=== PATIENT | female | born 1990 | race Caucasian/White ===

== ENCOUNTER 2021-03-19 07:38 | Inpatient (IN) ==
[2021-03-19] MEDS ORDERED: OXYTOCIN 30 UNITS/500 ML BAG IV PRN ×3 (08:25→21:46)
[2021-03-19 09:18] LABS: Hematocrit (blood only) 37.3 % (37-47); Hemoglobin 12.4 g/dL (12.0-16.0); Mean Corpuscular Hemoglobin 30.9 pg (25-34); Mean Corpuscular Hgb Conc 33.2 g/dL (32-36); Mean Platelet Volume 10.3 fL (7.4-10.4); Platelet Count 178 K/uL (130-400); RDW Coefficient of Variation 13.5 % (11.5-14.5); RDW Standard Deviation 46.4 fL (36.4-46.3); Red Blood Count 4.01 M/uL (4.2-5.4); White Blood Count 7.39 K/uL (4.8-10.8)
[2021-03-19] MEDS: LACTATED RINGER'S 1,000 ML IV PRN ×3 (09:37→15:37)
--- NOTE | 2021-03-19 10:38 | History & Physical Report ---
Date of Service March 19, 2021 Assessment & Plan (1) Previous delivery affecting , antepartum: Plan: cervical change accomplished with cervical balloon. will begin pitocin augmentation of labor Type and Screen done because of prior section AROM when able to do so. Cervix is too posterior to perform now. Epidural when requested. Anticipate vaginal Admission and Anticipated Discharge Date Admission Date: March 19, 2021 History of Present Illness Primary Care Provider: Amada Moreno PA-C Patient is a 30 yo white female who presents at 39 weeks for IOL. She had a primary C/S with her last because of suspected macrosomia at 41 weeks without a trial of labor. Patient is requesting trial of as the women in her family all have large babies and have had successful vaginal births. She would at least like the opportunity to try. EFW at 36 weeks was 89%tile - EFW 7lbs 4 ozs. Prior infant weighed 10 lbs 12 ozs. She received a cervical balloon last night. She developed some contractions and then balloon was expelled. Some contractions afterward but she was able to get some sleep. GBS negative. Rest of has been uncomplicated. Allergies Allergy/AdvReac Type Severity Reaction Status Date / Time Iodinated Contrast Media Allergy facial Verified 03/19/21 08:14 swelling Home Medications Medication Instructions Recorded Confirmed Type prenat.vits,jazlyn,gup-mjrl-lexbz 1 tab PO DAILY 08/04/20 03/19/21 History Patient History Medical History Large for gestational age fetus Varicella vaccination Surgical History S/P section S/P laparoscopy Status post hip surgery Family History Grandmother (Maternal) Breast cancer Aunt Breast cancer Denies family history of Ovarian cancer Colorectal cancer Social History (Updated 08/04/20 @ 09:06 by Arianna Fragoso) Smoking Status: Never smoker Hx Alcohol Use: No Hx Substance Use: No Preferred Language: Italian Communication Ability: Effective Bell Staff Required: No Beliefs That Will Affect Care: None marital status: marital status details: Chris Pennie (31) [phone] Current Living Situation: Family Current Living Situation Comment: and son (21mo) current occupational status: employed 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 Feels Safe at Home: Yes Safety Concerns: Feels Safe At This Time Assistive Devices: None Review of Systems All systems reviewed & are unremarkable except as noted in HPI & below Physical Exam Constitutional: WD/WN, vitals as above Respiratory: normal respiratory effort, lungs clear to auscultation Cardiovascular: RRR, no murmur, no edema Psychiatric: A+Ox3, euthymic affect Genitourinary: OB Exam Abdomen: + vertex, + estimated weight (8-9 pounds) and + irregular contractions Manual OB Exam: + cervical dilation 3 cm, + cervical effacement 80% and + station -2 OB Exam Monitor Tracing: + external FHT monitor used, + external uterine monitor used, + category I and + normal FHT variability Results & Data ([facility]) Vital Signs (Past 12 Hours) Vital Signs Temp Pulse Resp BP 03/19/21 09:39 86 109/70 03/19/21 07:53 97.9 F 20 03/19/21 07:44 96 H 114/76 Code Status & VTE Plan VTE Prophylaxis Plan VTE Prophylaxis will be ordered: No Coding Level of Care Code None Diagnoses Previous delivery affecting , antepartum O34.219
[2021-03-19] MEDS ORDERED: fentaNYL citrate 100 MCG/2 ML VIAL ONE (14:11)
[2021-03-19] MEDS ORDERED: SODIUM CHLORIDE 0.9% INJ 10 ML VIAL ONE ×2 (14:11→15:27)
[2021-03-19] MEDS ORDERED: BUPIVACAINE 0.25% 30 ML VIAL ONE (14:11)
[2021-03-19] MEDS ORDERED: ePHEDrine sulfate 50 MG/ML AMP ONE (14:11)
[2021-03-19] MEDS ORDERED: fentaNYL 2MCG/ML ROPIVACAINE 1.25MG/ML 100 ML BAG EPI ONE (14:12)
[2021-03-19] MEDS ORDERED: NALOXONE HCL 1 MG in SODIUM CHLORIDE 0.9% 1000ML 1,000 ML IV PRN (14:33)
[2021-03-19] MEDS ORDERED: NALOXONE HCL 0.4 MG/1 ML VIAL/CARP IV PRN (14:33)
[2021-03-19] MEDS ORDERED: ePHEDrine sulfate 50 MG/ML AMP IV PRN (14:33)
[2021-03-19] MEDS ORDERED: fentaNYL 2MCG/ML ROPIVACAINE 1.25MG/ML 100 ML BAG EPI PRN (14:33)
[2021-03-19] MEDS ORDERED: ONDANSETRON INJ 2 MG/ML 2 ML VIAL IV PRN (14:33)
[2021-03-19] MEDS ORDERED: diphenhydrAMINE 50 MG/ML VIAL IV PRN (14:33)
[2021-03-19] MEDS ORDERED: NALBUPHINE HCL INJ 10 MG/ML AMP IV PRN (14:33)
--- NOTE | 2021-03-19 14:38 | Anesthesiology Consultation ---
Date of Service March 19, 2021 Assessment & Plan (1) Encounter for pre-operative examination: Chart Review Chart Review: Patient NOT seen in Pre Admission Testing and Acceptable Risk for Labor Epidural Consults Requested none History Height/Weight Height: 5 ft 5 in Weight: 76.204 kg Allergies Allergy/AdvReac Type Severity Reaction Status Date / Time Iodinated Contrast Media Allergy facial Verified 03/19/21 08:14 swelling Medications Home Medications Medication Instructions Recorded Confirmed Last Taken prenat.vits,jazlyn,fjg-yoct-acdmj 1 tab PO DAILY 08/04/20 03/19/21 03/18/21 12:00 Active Medications Generic Name Dose Route Start Last Admin Trade Name Freq PRN Reason Stop Dose Admin Oxytocin 30 units in 500 mls @ 11 mls/hr 03/19/21 08:25 03/19/21 12:30 Pitocin IV 03/21/21 08:24 0.66 units/hr .Q24H PRN 11 mls/hr Labor Induction/Augmentation Titration Protocol 0.66 UNITS/HR Lactated Ringer's 1,000 mls @ 125 mls/hr 03/19/21 08:25 03/19/21 14:30 Lr IV 03/21/21 08:24 999 mls/hr .Q8H PRN Administration L&D Protocol Protocol Past Medical History Medical History (Updated 03/19/21 @ 14:36 by Darly Moss MD) Encounter for pre-operative examination Large for gestational age fetus Varicella vaccination Exercise / Class Metabolic Activity II 4-5 Yardwork/Stairs/Walk up hill Past Family History Family History Grandmother (Maternal) Breast cancer Aunt Breast cancer Denies family history of Ovarian cancer Colorectal cancer Past Surgical History Surgical History S/P section S/P laparoscopy Status post hip surgery Past Anesthesia History No Hx of Anesthesia Complications and No Family Hx of Anesthesia Complications History of PONV No Hx of PONV and No Hx of Motion Sickness Social History Smoking Status: Never smoker Hx Alcohol Use: No Hx Substance Use: No Physical Exam Vital Signs Last Vital Signs Temp 37.0 C 03/19/21 12:46 Pulse 95 H 03/19/21 14:33 Resp 20 03/19/21 10:56 BP 122/76 03/19/21 13:20 Pulse Ox 91 03/19/21 14:33 Testing Laboratory Results 03/19/21 08:54 Blood Type O Positive 03/19/21 08:54 Antibody Screen NEGATIVE 03/19/21 08:54
[2021-03-19] MEDS ORDERED: DIPHTHERIA/TETANUS/PERTUSSIS 0.5 ML SYR/VIAL IM ONE (21:46)
[2021-03-19] MEDS ORDERED: ACETAMINOPHEN 325 MG TAB PO PRN (21:46)
[2021-03-19] MEDS ORDERED: HYDROCORTISONE ACETATE 25 MG SUPP PR PRN (21:46)
[2021-03-19] MEDS ORDERED: BENZOCAINE 20% AER SPR 82.5 GM CAN EXT PRN (21:46)
[2021-03-19] MEDS ORDERED: oxyCODONE/ACETAMINOPHEN 5mg/325mg TAB PO PRN (21:46)
[2021-03-19] MEDS ORDERED: SUPERCREAM 0.870% 15 GM JAR EXT PRN (21:46)
[2021-03-19] MEDS ORDERED: bisacodyL 10 MG SUPP PR PRN (21:46)
--- NOTE | 2021-03-19 21:57 | Anesthesia Procedure Note ---
Date of Service March 19, 2021 Anesthesia Post Epidural Note Vital Signs Vital Signs: Temp Pulse Resp BP Pulse Ox 37.2 C 100 H 20 107/57 L 100 03/19/21 17:52 03/19/21 21:50 03/19/21 18:05 03/19/21 21:50 03/19/21 21:29 Notes Mental Status: alert / awake / arousable and participated in evaluation Patient Amnestic to Procedure: No Nausea / Vomiting: adequately controlled Pain: adequately controlled Airway Patency, RR, SpO2: stable & adequate BP & HR: stable & adequate Hydration State: stable & adequate Neuraxial Anesthesia: was administered and sensory block is resolving Anesthetic Complications: no major complications apparent and Pt Satisfied with anesthetic care Epidural: Removed without complications and With tip intact
--- NOTE | 2021-03-19 22:27 | Delivery Summary ---
Vaginal Delivery Summary Date of Service March 19, 2021 Vaginal Delivery Summary and 2nd Degree LAC Patient is a 30-year-old 2 para 1-0-0-1 white female who presents at 39 weeks for induction of labor. Her prior delivery was by section because of suspected macrosomia. This was performed at 41 weeks gestation. She did not have a trial of labor with her first and is requesting to with this time. A cervical balloon was placed successfully the night prior to the induction. Pitocin augmentation was begun. Membranes were ruptured for clear fluid. She received effective epidural analgesia. She progressed to full dilation and +1 station. She pushed effectively over intact perineum for delivery of a viable male . The posterior arm delivered shortly after the head and was gently delivered to the shoulder. The rest of the infant delivered easily and without maternal effort at this time. The infant was vigorous and crying upon delivery. He was placed on the mother's abdomen for further attention and drying. The cord was clamped and cut after 1 minute. The placenta was expressed intact with a three-vessel cord. bleeding was controlled with dilute Pitocin and fundal massage. A second-degree perineal laceration was repaired with 3-0 chromic in the usual fashion. Bilateral superficial labial tears were not bleeding and therefore not repaired. Estimated blood loss was 300 cc. Mother and were doing well after delivery. [facility] [place] Delivery Type Details: and 2nd Degree LAC
[2021-03-19] MEDS: IBUPROFEN 600 MG TAB PO PRN (23:57)
--- NOTE | 2021-03-20 05:38 | Obstetrical Progress Note ---
Date of Service <Ria De MD - Last Filed: 03/20/21 07:41> March 20, 2021 Assessment & Plan <Ria De MD - Last Filed: 03/20/21 07:41> (1) Vaginal after delivery: 30 yo now PPD1 from at 39wk2d with 2nd degree perineal laceration -Continue routine care, anticipate d/c tomorrow AM -Vitals reviewed- HDS, afebrile -Blood type O+, GBS-, Rubella immune -Encourage ambulation -Pain control with ibuprofen, acetaminophen PRN -Encourage -F/u in 6 weeks with OB <Vivian Brown MD, FACOG - Last Filed: 03/20/21 08:42> (1) Vaginal after delivery: Subjective <Ria De MD - Last Filed: 03/20/21 07:41> Ambulation: ambulating normally Voiding: no voiding problems Passing Gas:: Yes Diet Tolerance:: regular diet Lochia:: Moderate Feeding Type:: breast feeding Current Pain Level(1-10): 0 Pt doing well overall, no acute complaints or distress. Pain well controlled with medication. Review of Systems Denies fever/chills. Denies dyspnea, cough. Denies chest pain. Denies breast pain or discharge. Denies dysuria. Denies headache. Denies back pain. Physical Exam <Ria De MD - Last Filed: 03/20/21 07:41> General: Alert, oriented, no acute distress Cardiac: Regular rate and rhythm, normal S1, S2. No murmurs noted. Respiratory: Clear to auscultation b/l with good air flow entry, symmetric chest rise and fall. No wheezes or crackles. No increased work of breathing or accessory muscle use. Abdomen: Soft, nontender, nondistended. Fundus firm and palpable at 1 cm below umbilicus. No guarding or rebound. Skin: No rashes or lesions Extremities: Warm, dry and well-perfused with capillary refill <2s b/l. No lower extremity edema, erythema or swelling. Negative Irene's sign b/l. Results & Data ([facility]) <Ria De MD - Last Filed: 03/20/21 07:41> Vital Signs (Past 12 Hours) Vital Signs Temp Pulse Pulse Resp BP BP Pulse Ox 03/20/21 04:00 36.9 C 87 18 96/63 L 03/20/21 01:00 37.1 C 108 H 18 94/61 L 03/19/21 23:25 18 03/19/21 23:20 90 112/57 L 03/19/21 23:05 82 113/60 03/19/21 22:55 18 03/19/21 22:50 100 H 110/62 03/19/21 22:35 96 H 115/65 03/19/21 22:25 18 03/19/21 22:20 90 117/61 03/19/21 22:10 18 03/19/21 22:05 85 111/59 L 03/19/21 21:55 18 03/19/21 21:50 100 H 107/57 L 03/19/21 21:40 18 03/19/21 21:35 95 H 111/59 L 03/19/21 21:29 104 H 100 03/19/21 21:25 37 C 18 03/19/21 21:24 91 H 100 03/19/21 21:20 94 H 111/65 03/19/21 21:19 95 H 100 03/19/21 21:14 100 H 99 03/19/21 21:09 110 H 100 03/19/21 21:04 142 H 99 03/19/21 20:59 138 H 100 03/19/21 20:54 135 H 100 03/19/21 20:49 101 H 98 03/19/21 20:47 95 H 90 03/19/21 20:44 96 H 100 03/19/21 20:39 116 H 99 03/19/21 20:37 107 H 112/65 03/19/21 20:34 123 H 99 03/19/21 20:29 123 H 100 03/19/21 20:27 115 H 91 03/19/21 20:24 129 H 100 03/19/21 20:22 78 109/67 03/19/21 20:21 82 89 L 03/19/21 20:19 95 H 97 03/19/21 20:14 95 H 100 03/19/21 20:09 93 H 100 03/19/21 20:05 103 H 106/69 03/19/21 20:04 91 H 100 03/19/21 19:59 83 100 03/19/21 19:54 89 100 03/19/21 19:51 100 H 106/72 03/19/21 19:49 110 H 100 03/19/21 19:44 108 H 100 03/19/21 19:39 118 H 100 03/19/21 19:36 78 110/69 03/19/21 19:34 108 H 100 03/19/21 19:29 107 H 100 03/19/21 19:24 89 84 L 03/19/21 19:20 97 H 113/69 03/19/21 19:19 94 H 99 03/19/21 19:15 98 H 93 03/19/21 19:14 102 H 96 03/19/21 19:09 96 H 100 03/19/21 19:05 83 98/51 L 03/19/21 19:04 78 100 03/19/21 18:59 83 100 03/19/21 18:54 77 100 03/19/21 18:51 95 H 108/59 L 03/19/21 18:49 83 100 03/19/21 18:44 77 100 03/19/21 18:39 76 100 03/19/21 18:36 78 104/53 L 03/19/21 18:34 85 100 03/19/21 18:29 88 100 03/19/21 18:24 90 100 03/19/21 18:22 79 101/52 L 03/19/21 18:19 91 H 100 03/19/21 18:14 88 100 03/19/21 18:09 82 100 03/19/21 18:05 84 20 93/55 L 03/19/21 18:04 83 100 03/19/21 17:59 75 100 03/19/21 17:54 99 H 100 03/19/21 17:52 37.2 C 78 20 91/50 L 03/19/21 17:49 100 H 100 03/19/21 17:44 86 100 03/19/21 17:39 111 H 100 03/19/21 17:36 129 H 114/55 L <Vivian Brown MD, FACOG - Last Filed: 03/20/21 08:42> Co-Signing Physician Notes Resident Physician Supervision Note: I interviewed and examined the patient. Discussed with Dr. De and agree with findings and plan as documented in the note. Any exceptions or clarifications are listed here: [None] Documented By: Vivian Brown MD, FACOG Resident Activity Tracking <Ria De MD - Last Filed: 03/20/21 07:41> Resident Involvement: Resident Care Provided Care Provided: OB Delivery
[2021-03-20 07:13] LABS: Hematocrit (blood only) 36.8 % (37-47); Hemoglobin 12.2 g/dL (12.0-16.0); Mean Corpuscular Hgb Conc 33.2 g/dL (32-36); Mean Corpuscular Volume 93.6 fL (80-100); Mean Platelet Volume 10.1 fL (7.4-10.4); Platelet Count 184 K/uL (130-400); RDW Coefficient of Variation 13.7 % (11.5-14.5); RDW Standard Deviation 46.8 fL (36.4-46.3); Red Blood Count 3.93 M/uL (4.2-5.4); White Blood Count 14.35 K/uL (4.8-10.8)
[2021-03-20] MEDS: DOCUSATE SODIUM 100 MG CAP PO SCH ×2 (07:47→20:34)
[2021-03-20] MEDS: IBUPROFEN 600 MG TAB PO PRN ×3 (07:47→17:51)
[2021-03-20] MEDS: PRENATAL VITAMIN 1 TAB PO SCH (07:47)
[2021-03-20] MEDS ORDERED: bisacodyL 5 MG TABEC PO SCH (20:00)
[2021-03-21] MEDS: IBUPROFEN 600 MG TAB PO PRN ×2 (03:33→08:12)
--- NOTE | 2021-03-21 06:57 | Obstetrical Progress Note ---
Date of Service <Ria De MD - Last Filed: 03/21/21 07:23> March 21, 2021 Assessment & Plan <Ria De MD - Last Filed: 03/21/21 07:23> (1) Vaginal after delivery: 30 yo now PPD2 from at 39wk2d with 2nd degree perineal laceration -D/c today, care instructions given -Vitals reviewed- HDS, afebrile -Blood type O+, GBS-, Rubella immune -Pain control with ibuprofen, acetaminophen PRN -Encourage -F/u in 6 weeks with OB <Arnie Stiles MD, FACOG - Last Filed: 03/21/21 07:47> (1) Vaginal after delivery: Subjective <Ria De MD - Last Filed: 03/21/21 07:23> Ambulation: ambulating normally Voiding: no voiding problems Passing Gas:: Yes Diet Tolerance:: regular diet Lochia:: Small Feeding Type:: breast feeding Current Pain Level(1-10): 0 Pt doing well overall, no acute complaints or distress. Pain well controlled with medication. Has passed BM Review of Systems Denies fever/chills. Denies dyspnea, cough. Denies chest pain. Denies breast pain or discharge. Denies dysuria. Denies headache. Denies back pain. Physical Exam <Ria De MD - Last Filed: 03/21/21 07:23> General: Alert, oriented, no acute distress Cardiac: Regular rate and rhythm, normal S1, S2. No murmurs noted. Respiratory: Clear to auscultation b/l with good air flow entry, symmetric chest rise and fall. No wheezes or crackles. No increased work of breathing or accessory muscle use. Abdomen: Soft, nontender, nondistended. Fundus firm and palpable at 2 cm below umbilicus. No guarding or rebound. Skin: No rashes or lesions Extremities: Warm, dry and well-perfused with capillary refill <2s b/l. No lower extremity edema, erythema or swelling. Negative Irene's sign b/l. Results & Data ([facility]) <Ria De MD - Last Filed: 03/21/21 07:23> Vital Signs (Past 12 Hours) Vital Signs Temp Pulse Resp BP Pulse Ox 03/20/21 23:25 36.6 C 70 16 104/66 99 03/20/21 20:25 36.4 C L 84 16 104/69 100 <Arnie Stiles MD, FACOG - Last Filed: 03/21/21 07:47> Co-Signing Physician Notes Resident Physician Supervision Note: I was present with Dr. Armando during the history and exam. I discussed the case with the resident and agree with the findings and plan as documented in the note. Any exceptions or clarifications are listed here: [None] Documented By: Arnie Stiles MD, FACOG Resident Activity Tracking <Ria De MD - Last Filed: 03/21/21 07:23> Resident Involvement: Resident Care Provided Care Provided: OB Delivery
[2021-03-21 07:30] LABS: Hematocrit (blood only) 31.2 % (37-47); Hemoglobin 10.3 g/dL (12.0-16.0)
[2021-03-21] MEDS: DOCUSATE SODIUM 100 MG CAP PO SCH (08:13)
[2021-03-21] MEDS: PRENATAL VITAMIN 1 TAB PO SCH (08:13)
== END 2021-03-21 09:50 | disposition home or self-care (01) | DRG 807 ==
LOC: 4S1 07:38 → 4S2 03-20 00:59

== ENCOUNTER 2023-04-27 11:14 | Inpatient (IN) ==
[2023-04-27] MEDS ORDERED: LIDOCAINE 1% LOCAL 20 ML VIAL INFIL PRN (11:20)
[2023-04-27] MEDS ORDERED: OXYTOCIN 30 UNITS/NSS 30 UNITS/500 ML BAG IV PRN ×2 (11:20→11:54)
[2023-04-27] MEDS ORDERED: SODIUM CHLORIDE 0.9% 250 ML IV PRN ×2 (11:23→13:06)
--- NOTE | 2023-04-27 11:40 | History & Physical Report ---
Date of Service April 27, 2023 Assessment & Plan (1) Encounter for induction of labor: Plan: Will admit patient for induction of labor. TOLAC. FHT cat 1 GBS negative. Rh positive. Epidural prn. Admission and Anticipated Discharge Date Admission Date: April 27, 2023 History of Present Illness Chief Complaint: IOL Primary Care Provider: Silverio Tesfaye MD Kami is a 32y/o female with no significant PMHx who is currently at IUP 39 5/7 WGA with an ROSARIO 04/29/23 as determined by certain LPM who is here for IOL due to post dates. She has history of 1 due to macrosomia and 1 successful . has been uncomplicated. (+) movement (-) contractions (-) fluid loss (-) bloody show External FHT and external uterine monitors used * Category 1 tracing * Moderate FHT variability. Had regular care since 1st trimester OB Labs: Blood Type O Positive 09/20/22 Antibody Screen NEGATIVE 09/20/22 Hemoglobin 12.0 g/dl (12.0-16.0) 02/07/23 Hematocrit 35.3 % (37.0-47.0) L 02/07/23 Mean Corpuscular Volume 89.9 fL (80.0-100.0) 09/20/22 Platelet Count 202 K/uL (130-400) 09/20/22 Rubella IgG Antibody Immune (Immune) 09/20/22 Rapid Plasma Reagin Nonreactive (Nonreactive) 09/20/22 Hepatitis B Surface Antigen Neg (Neg) 08/14/20 Hepatitis B Surface Antigen. NON-REACTIVE (NON-REACTIVE) 09/20/22 Hepatitis C Antibody (EIA) NON-REACTIVE (NON-REACTIVE) 09/20/22 HIV (1&2) Ab and P24 Ag, 4th Gener Neg (Neg) 08/14/20 HIV (1&2) Ag and Ab Confirmation NON-REACTIVE (NON-REACTIVE) 09/20/22 Glucose 1 Hour 50 gm Load 103 mg/dl (70-130) 02/07/23 OB Optional Labs: Chlamydia trachomatis RNA Not Detected (NotDetected) 09/20/22 Neisseria gonorrhoeae RNA Not Detected (NotDetected) 09/20/22 Labs Reviewed: Declines genetics--mln Allergies Allergy/AdvReac Type Severity Reaction Status Date / Time Iodinated Contrast Media Allergy Severe facial Verified 04/26/23 10:49 swelling Home Medications Medication Instructions Recorded Confirmed Type prenat.vits,jazlyn,ccy-fwtd-qtjgc 1 tab PO QAM 08/04/20 04/27/23 History magnesium PO 09/16/22 04/26/23 History Patient History Medical History Biliary dyskinesia History of COVID-19 Restless leg syndrome Surgical History H/O colonoscopy Hx laparoscopic cholecystectomy (06/30/22) S/P section S/P cholecystectomy S/P laparoscopy Status post hip surgery Family History Grandmother (Maternal) Breast cancer Aunt Breast cancer Sister Cancer Denies family history of Ovarian cancer Colorectal cancer Social History Smoking Status: Never smoker Second Hand Exposure: No; Do You Dip or Chew Tobacco: No; Hx Alcohol Use: Yes Hx Substance Use: No Preferred Language: Latvian Communication Ability: Effective Equipment Worker Required: No Beliefs That Will Affect Care: None marital status: marital status details: Chris Casper (31) [phone] Current Living Situation: Family Current Living Situation Comment: , 2 kids, 2 cats ( fob litter changing) current occupational status: employed current occupation: self employed How many Children do You have: 2 Feels Safe at Home: Yes Diet: regular Assistive Devices: Glasses OB History Del. Date GA wks Lbr Lgth wt Sex Type del Anes Place Del Prov ? Comment 06/02/19 41 10-12 M Sp inal Other [place] No LGA 03/19/21 39 9lb 8.1oz M Epi dural [facility] Dr. Ho No [employer] History Menarche was at 12 y/o LMP: 07/23/22 * Regular every 30 days * Flow: normal Contraception use: No History of STDs: No last pap 06/2019 [place] Review of Systems no fever, no chills and no sweats Denies changes in vision. Denies shortness of breath or respiratory difficulty. no chest pain and no palpitations no dysuria no headache(s) Physical Exam Physical Exam: General: Alert, oriented x3. Afebrile. No acute distress. Eyes: Pupils equal and reactive to light bilaterally. Extraocular movement intact bilaterally. Cardiac: Regular rate and rhythm, no murmurs/rubs/gallops. Respiratory: Clear to auscultation bilaterally a/p, no wheezes/rales/rhonchi. No increased work of breathing. Symmetrical chest rise. No respiratory distress. Abdomen: Gravid; FHR 140-145 bpm; Position: Vertex Pelvic: Dilation _cm; Effacement _; Station _ per Dr. Parr Lower Extremities: No lower extremity edema or swelling. No deep calf pain. Irene's negative bilaterally Results & Data Diagnostic Findings EFW > 98% (04/04/23) Supervising Physician Co-Signing Physician Notes Resident Physician Supervision Note: I interviewed and examined the patient. Discussed with Dr. Tamez and agree with findings and plan as documented in the note. Any exceptions or clarifications are listed here: 32 yo at 39 5/7 wga presents for elective IOL, tolac. +FM; denies ctx, LOF, VB. Hx CSx1 and successful tolac induction w/ last for 9lb8oz baby. This baby is projected to be 4600g today. She was counseled regarding attempted vaginal delivery given suspected macrosomia that is bigger than last baby including risk of shoulder dystocia. Had short second stage with last and delivered fine last time so would like to attempt. Discussed consent form with risks including 1% risk of uterine rupture and potential conseequences afterward, slight increased risk with use of pitocin as well. Pt verbalized understsanding, consent signed. Will T&C,anesthesia made aware. SVE /-2, EFW 9-10. Will start pit, arom when able, gbs neg, epidural prn Documented By: Penelope Parr MD Resident Activity Tracking Resident Involvement: Resident Care Provided Care Provided: OB Delivery
[2023-04-27] MEDS: LACTATED RINGER'S 1,000 ML IV PRN ×2 (12:04→16:29)
[2023-04-27 12:08] LABS: Hematocrit (blood only) 37.9 % (37.0-47.0); Mean Corpuscular Hemoglobin 31.3 pg (25.0-34.0); Mean Corpuscular Hgb Conc 34.3 g/dL (32.0-36.0); Mean Corpuscular Volume 91.1 fL (80.0-100.0); Mean Platelet Volume 11.2 fL (9.4-12.4); Platelet Count 162 K/uL (130-400); RDW Coefficient of Variation 12.9 % (11.5-14.5); RDW Standard Deviation 42.8 fL (36.4-46.3); Red Blood Count 4.16 M/uL (4.20-5.40); White Blood Count 8.35 K/ul (4.8-10.8)
--- NOTE | 2023-04-27 14:57 | Labor Progress Brief Note ---
Date of Service April 27, 2023 Subjective feeling contractions but manageable Assessment & Plan (1) Encounter for induction of labor: (2) Desires (vaginal after ) trial: Plan 32 yo at 39 5/7 admitted for tolac IOL VSS Fetus cat 1 Labor - pit at 6, now s/p arom GBS neg epidural prn Admission and Anticipated Discharge Date Admission Date: April 27, 2023 Physical Exam Genitourinary: Manual OB Exam: + cervical dilation (4-5), + cervical effacement 70%, + station -2 and + amniotic fluid (arom clear) OB Exam Monitor Tracing: + external FHT monitor used, + external uterine monitor used (q4) and + category I (135/mod/+accel/-decel) Results & Data Vital Signs (Past 12 Hours) Vital Signs Temp Pulse Resp BP O2 Del Method 04/27/23 14:35 93 H 138/80 04/27/23 14:20 77 117/74 04/27/23 14:06 88 114/72 04/27/23 13:52 100 H 108/70 04/27/23 13:36 82 120/70 04/27/23 13:30 18 04/27/23 13:30 18 04/27/23 13:21 82 126/75 04/27/23 13:05 84 123/85 04/27/23 12:50 86 115/75 04/27/23 12:15 98.1 F 18 Room Air Coding Level of Care Code None Diagnoses Encounter for induction of labor Z34.90 Desires (vaginal after ) trial O34.219
[2023-04-27] MEDS ORDERED: ePHEDrine sulfate 50 MG/ML AMP ONE (16:05)
[2023-04-27] MEDS ORDERED: fentaNYL citrate PF 100 MCG/2 ML VIAL ONE (16:05)
[2023-04-27] MEDS ORDERED: SODIUM CHLORIDE 0.9% PF INJ 10 ML VIAL ONE (16:05)
[2023-04-27] MEDS ORDERED: BUPIVACAINE 0.25% PF 30 ML VIAL ONE (16:06)
[2023-04-27] MEDS ORDERED: LIDOCAINE 2%/EPINEPHRINE 1:200,000 20 ML PF ONE (16:06)
[2023-04-27] MEDS ORDERED: fentANYL 2 MCG/ML BUPIVacaine 0.125%-NSS 100ML BAG ONE (16:06)
--- NOTE | 2023-04-27 16:15 | Anesthesiology Consultation ---
Date of Service April 27, 2023 Assessment & Plan Chart Review Chart Review: Acceptable Risk for Labor Epidural Consults Requested none History Height/Weight Height: 5 ft 5 in Weight: 74.389 kg Allergies Allergy/AdvReac Type Severity Reaction Status Date / Time Iodinated Contrast Media Allergy Severe facial Verified 04/26/23 10:49 swelling Medications Home Medications Medication Instructions Recorded Confirmed Last Taken prenat.vits,jazlyn,gfk-euts-fbghl 1 tab PO QAM 08/04/20 04/27/23 04/26/23 22:00 magnesium PO 09/16/22 04/26/23 04/26/23 22:00 Active Medications Generic Name Dose Route Start Last Admin Trade Name Freq PRN Reason Stop Dose Admin Lactated Ringer's 1,000 mls @ 125 mls/hr 04/27/23 11:20 04/27/23 16:04 Lr IV 04/29/23 11:19 999 mls/hr .Q8H PRN Infusion L&D Protocol Protocol Oxytocin 30 units in 500 mls @ 6 mls/hr 04/27/23 11:54 04/27/23 13:40 Pitocin 30 Units/Nss IV 04/29/23 11:53 0.36 units/hr .Q24H PRN 6 mls/hr Labor Induction/Augmentation Titration Protocol 0.36 UNITS/HR Past Medical History Medical History Biliary dyskinesia History of COVID-19 Restless leg syndrome Past Family History Family History Grandmother (Maternal) Breast cancer Aunt Breast cancer Sister Cancer Denies family history of Ovarian cancer Colorectal cancer Past Surgical History Surgical History H/O colonoscopy Hx laparoscopic cholecystectomy (06/30/22) S/P section S/P cholecystectomy S/P laparoscopy Status post hip surgery Social History Smoking Status: Never smoker Do You Dip or Chew Tobacco: No Hx Alcohol Use: Yes alcohol intake frequency: a few times a month Hx Substance Use: No substance use type: does not use Physical Exam Vital Signs Last Vital Signs Temp 36.8 C 04/27/23 15:10 Pulse 96 H 04/27/23 15:57 Resp 20 04/27/23 15:30 BP 124/75 04/27/23 15:57 O2 Del Method Room Air 04/27/23 12:15 Testing Laboratory Results 04/27/23 11:33 Blood Type O Positive 04/27/23 11:33 Antibody Screen NEGATIVE 04/27/23 11:33
[2023-04-27] MEDS ORDERED: BUPIVACAINE 0.25% PF 30 ML VIAL EPI PRN (16:17)
[2023-04-27] MEDS ORDERED: LIDOCAINE 2% MPF LOCAL 5 ML VIAL EPI PRN (16:17)
[2023-04-27] MEDS ORDERED: diphenhydrAMINE 50 MG/ML VIAL IV PRN (16:17)
[2023-04-27] MEDS ORDERED: fentaNYL citrate PF 100 MCG/2 ML VIAL EPI PRN (16:17)
[2023-04-27] MEDS ORDERED: fentANYL 2 MCG/ML BUPIVacaine 0.125%-NSS 100ML BAG EPI PRN (16:17)
[2023-04-27] MEDS ORDERED: LIDOCAINE 2%/EPINEPHRINE 1:200,000 20 ML PF EPI STA (16:17)
[2023-04-27] MEDS ORDERED: ROPIVACAINE 0.5% PF 5 MG/ML 20 ML VIAL EPI PRN (16:17)
[2023-04-27] MEDS ORDERED: NALOXONE HCL 0.4 MG/1 ML VIAL/CARP IV PRN (16:17)
[2023-04-27] MEDS ORDERED: BUPIVACAINE 0.25% PF 30 ML VIAL EPI STA (16:17)
[2023-04-27] MEDS ORDERED: ePHEDrine sulfate 50 MG/ML AMP IV PRN (16:17)
[2023-04-27] MEDS ORDERED: fentaNYL citrate PF 100 MCG/2 ML VIAL EPI STA (16:17)
[2023-04-27] MEDS ORDERED: SODIUM CHLORIDE 0.9% PF INJ 10 ML VIAL EPI STA (16:17)
[2023-04-27] MEDS ORDERED: NALOXONE HCL 1 MG in SODIUM CHLORIDE 0.9% 1,000 ML IV PRN (16:17)
[2023-04-27] MEDS ORDERED: NALBUPHINE HCL 5 MG in SYRINGE 0 ML IV PRN (16:17)
[2023-04-27] MEDS ORDERED: SODIUM CHLORIDE 0.9% PF INJ 10 ML VIAL EPI PRN (16:17)
--- NOTE | 2023-04-27 16:54 | Labor Progress Brief Note ---
Date of Service April 27, 2023 Subjective comfortable w/ epidural Assessment & Plan (1) Encounter for induction of labor: (2) Desires (vaginal after ) trial: Plan 32 yo at 39 5/7 admitted for tolac IOL VSS Fetus cat 1 Labor - good progress noted, continue induction GBS neg epidural in place Admission and Anticipated Discharge Date Admission Date: April 27, 2023 Physical Exam Genitourinary: Manual OB Exam: + cervical dilation 8 cm, + cervical effacement 90% and + station 0 OB Exam Monitor Tracing: + external FHT monitor used, + external uterine monitor used (q3-4) and + category I (120/mod/+accel/-decel) Results & Data Vital Signs (Past 12 Hours) Vital Signs Temp Pulse Resp BP Pulse Ox O2 Del Method 04/27/23 16:51 85 119/71 04/27/23 16:49 88 121/73 04/27/23 16:47 100 04/27/23 16:47 122 H 04/27/23 16:47 83 119/72 04/27/23 16:45 94 H 112/66 04/27/23 16:43 86 111/64 04/27/23 16:42 86 100 04/27/23 16:41 89 116/67 04/27/23 16:39 81 116/65 04/27/23 16:37 100 04/27/23 16:37 96 H 04/27/23 16:37 85 114/64 04/27/23 16:35 78 116/69 04/27/23 16:33 76 117/67 04/27/23 16:32 79 100 04/27/23 16:31 82 128/67 04/27/23 16:29 81 113/63 04/27/23 16:27 92 H 125/73 100 04/27/23 16:25 99 H 125/67 04/27/23 16:23 102 H 140/69 04/27/23 16:22 94 H 100 04/27/23 16:16 102 H 100 04/27/23 15:57 96 H 124/75 04/27/23 15:30 20 04/27/23 15:30 20 04/27/23 15:10 18 04/27/23 15:10 98.2 F 18 04/27/23 14:56 92 H 131/87 04/27/23 14:35 93 H 138/80 04/27/23 14:20 77 117/74 04/27/23 14:06 88 114/72 04/27/23 13:52 100 H 108/70 04/27/23 13:36 82 120/70 04/27/23 13:30 18 04/27/23 13:30 18 04/27/23 13:21 82 126/75 04/27/23 13:05 84 123/85 04/27/23 12:50 86 115/75 04/27/23 12:15 98.1 F 18 Room Air Coding Level of Care Code None Diagnoses Encounter for induction of labor Z34.90 Desires (vaginal after ) trial O34.219
--- NOTE | 2023-04-27 19:29 | Anesthesia Procedure Note ---
Date of Service April 27, 2023 Anesthesia Post Epidural Note Vital Signs Vital Signs: Temp Pulse Resp BP Pulse Ox O2 Del Method 36.7 C 75 18 121/68 100 Room Air 04/27/23 17:00 04/27/23 19:14 04/27/23 19:15 04/27/23 19:14 04/27/23 19:12 04/27/23 12:15 Pain Intensity Abdomen: Pain Intensity: 2 Notes Mental Status: alert / awake / arousable Nausea / Vomiting: adequately controlled Pain: adequately controlled Airway Patency, RR, SpO2: stable & adequate BP & HR: stable & adequate Hydration State: stable & adequate Neuraxial Anesthesia: was administered and sensory block is resolving Anesthetic Complications: no major complications apparent and Pt Satisfied with anesthetic care Epidural: Removed without complications and With tip intact
--- NOTE | 2023-04-27 19:47 | Delivery Summary ---
Vaginal Delivery Summary Date of Service April 27, 2023 Vaginal Delivery Summary and 2nd Degree LAC PREOPERATIVE DIAGNOSIS: 1. Single intrauterine at 39 5/7 wga 2. Trial of labor after 3. Suspected LGA POSTOPERATIVE DIAGNOSIS: 1. Single intrauterine at 39 5/7 wga 2. Trial of labor after 3. Suspected LGA 4. Delivered PROCEDURE: 1. Vaginal after SURGEON: Penelope Parr MD ANESTHESIA: Epidural. ESTIMATED BLOOD LOSS: 300 mL FLUIDS: Continuous LR. URINE OUTPUT: None. COMPLICATIONS: Shoulder dystocia CONDITION: Stable. INDICATIONS: 32 yo at 39 5/7 wga presented for induction for tolac. complicated by suspected LGA, she was counseled regarding risks and benefits and desired to proceed. Induction was begun with pitocin. She underwent arom and received an epidural for pain control. She progressed to complete and desired to push FINDINGS: A viable female infant, weight 11lb 10 oz with Apgars of 8 and 9 at 1 and 5 minutes respectively. SPECIMEN: Cord blood OPERATIVE REPORT: The patient progressed to 10 cm, 100% effaced and +2 station, pushed quickly over intact perineum with anesthesia to deliver a viable female infant, weight and Apgars as above. Head of delivered in TANA position. Nuchal cord was reduced. Shoulders did not deliver with gentle downward traction. Shoulder dystocia was called, McRobert's maneuver and suprapubic pressure were performed and anterior shoulder delivered. was delivered to maternal abdomen and nursing staff. Delayed cord clamping was performed for 60 seconds. Cord was clamped and cut. Cord blood was obtained. Placenta delivered spontaneously intact with 3-vessel cord. IV oxytocin and fundal massage were given for excellent hemostasis. Vagina, cervix, perineum, and placenta were inspected. A second degree laceration was noted and repaired using 3-0 vicryl. There was excellent hemostasis. Sponge and needle counts correct x2. No sponges were left behind. Mother and stable in immediate period. [facility] [place] Vaginal Delivery Charge Vaginal Delivery Codes: 92791 global code for the antepartum, delivery, and post- Delivery Type Details: and 2nd Degree LAC
[2023-04-27 19:51] LABS: Base Excess Cord Venous Blood -2.6 mEq/L (-7.7-1.9); Cord Venous Blood HCO3 22 mmol/L (18.4-26.8); Cord Venous Blood PCO2 36 mmHg (30.4-57.2); Cord Venous Blood PO2 40 mmHg (14.1-43.3); Cord Venous Blood pH 7.39 (7.20-7.44); O2 Saturation Cord Venous Bld 76.8 % (<68)
[2023-04-27] MEDS ORDERED: HYDROCORTISONE ACETATE 25 MG SUPP PR PRN (19:56)
[2023-04-27] MEDS ORDERED: miSOPROStoL 200 MCG TAB PR ONE (19:56)
[2023-04-27] MEDS ORDERED: DIPHTHERIA/TETANUS/PERTUSSIS Vaccine (Tdap, Age 7+yrs) 0.5mL SYR/VL IM ONE (19:56)
[2023-04-27] MEDS ORDERED: bisacodyL 10 MG SUPP PR PRN (19:56)
[2023-04-27] MEDS ORDERED: BENZOCAINE 20% SPRY 85 APPLN/85 GM CAN EXT PRN (19:56)
[2023-04-27] MEDS ORDERED: ACETAMINOPHEN 325 MG TAB PO PRN (19:56)
[2023-04-27] MEDS ORDERED: METHYLERGONOVINE MALEATE 0.2 MG/ML AMP IM ONE (19:56)
[2023-04-27] MEDS ORDERED: OXYTOCIN 20 UNITS in LACTATED RINGER'S 1,000 ML IV SCH (20:30)
[2023-04-27] MEDS: DOCUSATE SODIUM 100 MG CAP PO SCH (20:38)
[2023-04-27] MEDS ORDERED: OXYTOCIN 20 UNITS/LR 1,002 ML IV SCH (21:00)
[2023-04-27] MEDS: IBUPROFEN 600 MG TAB PO PRN (21:40)
[2023-04-28] MEDS: IBUPROFEN 600 MG TAB PO PRN ×2 (02:43→08:37)
--- NOTE | 2023-04-28 07:46 | Obstetrical Progress Note ---
Date of Service <Mima Tamez MD - Last Filed: 04/28/23 07:46> April 28, 2023 Assessment & Plan <Mima Tamez MD - Last Filed: 04/28/23 07:46> (1) Encounter for care after hospital delivery: Patient with the above mentioned history and findings was evaluated at bedside and found awake, alert, oriented in all spheres, afebrile, and in no acute distress. Vital signs showed no fever and blood pressures remained stable. Her blood type is O positive and most recent hemoglobin is adequate at 13 g/dL. She is GBS negative and rubella immune. Overall, patient is doing well clinically and meeting the desired milestones. Since she is clinically and hemodynamically stable, will discharge today. she was counseled to make an appointment with her OB in 6 weeks for her routine pp evaluation. Discharge instructions discussed. All questions answered. <Penelope Parr MD - Last Filed: 04/28/23 08:12> (1) Encounter for care after hospital delivery: Subjective <Mima Tamez MD - Last Filed: 04/28/23 07:46> Kami is a 32 y/o female who is now PPD # 1 following successful at 39 5/7 weeks. Reports feeling well overall this morning. Refers mild abdominal cramping & 2/10 pain well managed on analgesics. Voiding spontaneously. Has passed flatus but no bowel movements yet. Tolerating meals overnight and able to ambulate some. Some persistent lochia with some improvement this morning. . Constitutional: no fever, no chills or no sweats Denies shortness of breath or difficulty breathing Cardiovascular: no chest pain or no palpitations Breast: no breast pain Genitourinary (female): no dysuria Neurologic: no headache(s) Denies changes in vision Physical Exam <Mima Tamez MD - Last Filed: 04/28/23 07:46> General: Alert. Oriented to person, time, and place. Afebrile. No acute distress. Eyes: pupils equal and reactive to light bilaterally, extraocular movements intact. Cardiac: Regular rate and rhythm, no murmurs/rubs/gallops. Respiratory: Clear to auscultation bilaterally a/p, no wheezes/rales/rhonchi. No increased work of breathing. Symmetrical chest rise. No respiratory distress. Abdomen: Soft, nontender, nondistended. Bowel sounds present. Uterus: Uterine fundus firm, mildly tender, and palpable at umbilicus. Lower Extremities: No lower extremity edema or swelling. No deep calf pain. Irene's negative bilaterally. Psych: Euthymic affect. Mood and affect congruence. Regular speech rate and content. Results & Data <Mima Tamez MD - Last Filed: 04/28/23 07:46> Vital Signs (Past 12 Hours) Vital Signs Temp Pulse Pulse Resp BP BP Pulse Ox 04/28/23 02:35 36.6 C 75 14 114/79 98 04/27/23 22:10 36.4 C L 85 16 109/75 98 04/27/23 21:29 18 04/27/23 21:29 84 115/69 04/27/23 21:14 77 116/66 04/27/23 20:59 79 122/73 04/27/23 20:45 18 04/27/23 20:44 76 122/70 04/27/23 20:29 63 131/72 04/27/23 20:16 72 125/66 04/27/23 20:15 18 04/27/23 20:00 18 04/27/23 19:59 63 120/63 04/27/23 19:45 18 04/27/23 19:44 72 118/68 O2 Del Method 04/28/23 02:35 Room Air 04/27/23 22:10 Room Air 04/27/23 21:29 04/27/23 21:29 04/27/23 21:14 04/27/23 20:59 04/27/23 20:45 04/27/23 20:44 04/27/23 20:29 04/27/23 20:16 04/27/23 20:15 04/27/23 20:00 04/27/23 19:59 04/27/23 19:45 04/27/23 19:44 Supervising Physician <Penelope Parr MD - Last Filed: 04/28/23 08:12> Co-Signing Physician Notes Resident Physician Supervision Note: I interviewed and examined the patient. Discussed with Dr. Tamez and agree with findings and plan as documented in the note. Any exceptions or clarifications are listed here: PP1 s/p , doing well. VSS, exam benign and wnl. Desires dc home, ok to do so after 24 hours Documented By: Penelope Parr MD
[2023-04-28] MEDS ORDERED: PRENATAL VITAMIN 1 TAB PO SCH (08:00)
[2023-04-28] MEDS: DOCUSATE SODIUM 100 MG CAP PO SCH (08:37)
[2023-04-28] MEDS ORDERED: bisacodyL 5 MG TABEC PO SCH (20:00)
== END 2023-04-28 20:18 | disposition home or self-care (01) | DRG 807 ==
LOC: 4S1 11:14 → 4E2 22:04